=== PATIENT | male | born 1960 | race Asian ===

== ENCOUNTER 2016-12-21 14:26 | Outpatient (CLI) | payer OTHER | END 2016-12-21 22:24 | disposition home or self-care (01) | LOC: MRD 14:26 | PROVIDERS: ATTEND Family Medicine | PROC: BT43ZZZ Ultrasonography of Bilateral Kidneys (ICD-10-PCS; principal; 2016-12-21) | DX: N18.2 Chronic kidney disease, stage 2 (mild) (principal); N13.30 Unspecified hydronephrosis ==